=== PATIENT | female | born 1995 | race Caucasian/White ===

== ENCOUNTER 2019-07-15 08:44 | Day surgery (SDC) | payer MEDICAID ==
[2019-07-14 11:20] LABS: BASOPHILS # (AUTO) 0.1 X10'3 (0-0.2); BASOPHILS % (AUTO) 1.3 % (0-1); EOSINOPHILS # (AUTO) 0.2 X10'3 (0-0.9); EOSINOPHILS % (AUTO) 1.9 % (0-6); LYMPHOCYTES # (AUTO) 3.1 X10'3 (1.1-4.8); LYMPHOCYTES % (AUTO) 37.8 % (21-51); MEAN CORPUSCULAR HEMOGLOBIN 27.4 PG (27.0-31.0); MEAN CORPUSCULAR HGB CONC 33.3 g/dL (33.0-36.5); MEAN CORPUSCULAR VOLUME 82.2 FL (78-98); MEAN PLATELET VOLUME 9.5 FL (7.4-10.4); MONOCYTES # (AUTO) 0.7 X10'3 (0-0.9); MONOCYTES % (AUTO) 8.1 % (2-12); NEUTROPHILS # (AUTO) 4.1 X10'3 (1.8-7.7); NEUTROPHILS % (AUTO) 50.9 % (42-75); PRE OP HEMATOCRIT 38.2 % (35.0-45.0); PRE OP HEMOGLOBIN 12.7 g/dL (12.0-16.0); PRE OP PLATELET COUNT 223 X10'3 (140-440); RED BLOOD COUNT 4.64 X10'6 (4.20-5.60); RED CELL DISTRIBUTION WIDTH 14.9 % (11.5-14.5)
[2019-07-14 11:35] LABS: HCG SERUM QL NEGATIVE
[2019-07-15] VITALS (10 sets, daily range): BP systolic 95–132; BP diastolic 47–77
[~2019-07-15] VITALS: Ht 175.3 cm; Wt 86.2 kg
[~2019-07-15 08:44] MED LIST: NO HOME MEDS; famotidine 20mg tablet PO ONE; ringers solution, lacted 1,000 ML IV SCH
[2019-07-15] MEDS ORDERED: midazolam 2 mg/2 ml injection ONE (10:30)
[2019-07-15] MEDS ORDERED: fentaNYL/PF 50MCG/1 ML 2ML syringe ONE ×2 (10:30→12:46)
[2019-07-15] MEDS ORDERED: ringers solution, lacted 1,000 ML IV SCH (10:37)
[2019-07-15] MEDS ORDERED: morphine 4 MG/ML inj SYRINge IV PRN (10:40)
[2019-07-15] MEDS ORDERED: morphine 2 MG/ML inj. syringe IV PRN (10:40)
[2019-07-15] MEDS ORDERED: meperidine/PF 25mg/ml syringe IV PRN ×3 (10:40)
[2019-07-15] MEDS ORDERED: ondansetron/PF 4mg/2ml inj IV PRN (10:40)
[2019-07-15] MEDS ORDERED: proCHLORperazine 10 MG/2 ml inj IV PRN (10:40)
[2019-07-15] MEDS ORDERED: propofol inj 20 ML IV ONE (11:27)
[2019-07-15] MEDS ORDERED: rocuronium 10mg/ml inj IV ONE (11:27)
[2019-07-15] MEDS ORDERED: LIDOcaine 2% (20mg/ml) 5ml vial ONE (11:27)
[2019-07-15] MEDS ORDERED: glycopyrrolate 0.2mg/ml inj ONE (11:27)
[2019-07-15] MEDS ORDERED: dexamethasone sod phosphate 4mg/ml inj. ONE (11:27)
[2019-07-15] MEDS ORDERED: neostigmine methylsulfate 1 MG/ML 10ml vial ONE (11:27)
[2019-07-15] MEDS ORDERED: ondansetron/PF 4mg/2ml inj ONE (11:29)
[2019-07-15] MEDS ORDERED: BUPIVAcaine/PF 2.5mg/ml (0.25%) 10ml vial ONE (12:12)
[2019-07-15] MEDS ORDERED: oxyCODONE/APAP 5-325mg tablet PO ONE (12:45)
--- NOTE | 2019-07-15 12:47 | NUR ---
Received from OR via [facility] , accompanied by Anesthesiologist DEBI and report given by Anesthesiolgist. PATIENT WITH 20G PIV IN LEFT UE RUNNING LR AT 100. 10L MASK ON WITH 100% SATURATIONS. VSS AT THIS TIME. 3 ABDOMINAL LAP BANDAIDS TO ABDOMEN. WILL CONTINUE TO ASSESS. Addendum: 07/15/19 at 1257 by Duran Sanchez RN, RN Amended: Links added.
--- NOTE | 2019-07-15 14:17 | NUR ---
ALL DC CRITERIA HAS BEEN MET. IV TAKEN OUT WITHOUT COMPLICATIONS. ALL INSTRUCTIONS COVERED AND ALL QUESTIONS ANSWERED. DRESSINGS CDI. OUT VIA WHEELCHAIR TO PERSONAL VEHICLE WHERE PATIENT WAS SECURED IN AND DRIVEN HOME BY FAMILY. PATIENT AMBULATED AND VOIDED PRIOR TO LEAVING. OUT VIA WHEELCHAIR TO PERSONAL VEHICLE WHERE FRIEND DROVE HER HOME. ALL MEDS VERIFIED THAT THEY WERE AVAILABLE AT THE PATIENTS PHARMACY. Addendum: 07/15/19 at 1437 by Duran Sanchez RN, RN Amended: Links added.
== END 2019-07-15 14:17 | disposition home or self-care (01) ==
LOC: PAS 08:44
PROVIDERS: ATTEND Obstetrics & Gynecology
DX: Z30.2 Encounter for sterilization (principal); E66.9 Obesity, unspecified; Z68.28 Body mass index [BMI] 28.0-28.9, adult; Z79.899 Other long term (current) drug therapy
CPT/HCPCS: 36415; 58670; 82948; 84703; 85025; 86885; 86900; 86901; J1100; J2001; J2175; J2250; J2405; J2704; J2710; J3010; J3490; A4618; A6250; J7120

== ENCOUNTER 2023-01-13 13:57 | Emergency (ER) | payer MEDICAID ==
[~2023-01-13] VITALS: Ht 154.9 cm; Wt 88.8 kg
[~2023-01-13 13:57] MED LIST changes: -famotidine 20mg tablet PO ONE; -ringers solution, lacted 1,000 ML IV SCH
[2023-01-13 14:05] VITALS: BP 148/77; PULSE 106; RESP 16; TEMP 99.7; O2SAT 98
[2023-01-13] MEDS ORDERED: PENI500T2 PO (14:50)
== END 2023-01-13 15:00 | disposition home or self-care (01) ==
LOC: ER 13:57
DX: J02.9 Acute pharyngitis, unspecified (principal); G43.909 Migraine, unspecified, not intractable, without status migrainosus; E78.00 Pure hypercholesterolemia, unspecified; I50.9 Heart failure, unspecified; I11.0 Hypertensive heart disease with heart failure; J44.9 Chronic obstructive pulmonary disease, unspecified; K21.9 Gastro-esophageal reflux disease without esophagitis; N18.9 Chronic kidney disease, unspecified; E03.9 Hypothyroidism, unspecified; M19.90 Unspecified osteoarthritis, unspecified site; Z90.49 Acquired absence of other specified parts of digestive tract
CPT/HCPCS: 99283